=== PATIENT | male | born 1945 | race Caucasian/White ===

== ENCOUNTER 2019-07-21 10:04 | Emergency (ER) | payer MEDICARE, SELFPAY ==
[2019-07-21 10:07] VITALS: BP 158/89; PULSE 74; RESP 16; TEMP 36.6; O2SAT 98
--- NOTE | 2019-07-21 10:27 | ED.GENADUL_ITS ---
Discharge Plan Disposition Patient Disposition: HOME Condition: Improving Discharge Details Chief Complaint: RashLesion Clinical Impression: Tick bite ED Provider: Karel Barragan Home Meds and New Rx's Prescriptions: New doxycycline hyclate 100 mg capsule 100 mg PO BID 14 Days Qty: 28 RF: 0 No Action atorvastatin 10 mg Tablet 10 mg PO DAILY RF: 0 warfarin 5 mg Tablet 5 mg PO DAILY RF: 0 diltiazem HCl 30 mg Tablet 30 mg PO DAILY RF: 0 Discharge Instructions Instructions: Tick Bite (ED) Additional Instructions: Remove bandage in 36 to 48 hours. Begin doxycycline as prescribed. Follow-up with the regular doctor's office for recheck of your warfarin level, the INR, Tuesday morning. Return for any acute concerns. Medical Decision Making 74-year-old male, related with warfarin for history of paroxysmal atrial fibrillation. Noticed a tick bite embedded in his right posterior thoracic wall. Partially removed at home, but due to retained foreign body and mild surrounding erythema, he seeks opinion in the ED. She is has unremarkable vital signs, exam reveals envenomation site. Without anesthesia bubble needle, 18- gauge was used to remove the residual foreign body. I do feel he is at high risk for Lyme disease exposure and will place him on a course of doxycycline. He lives in the [facility] and will have an INR check performed on Tuesday. He understands that antibiotics can interact with the warfarin mechanism of action. Stable for discharge to home at this time.. HPI General Mode of arrival: ambulatory . Date/Time Provider Initiated Documentation: 07/21/19 10:10 . Limitations to Documentation: no limitations . Information obtained by: patient . History of Present Illness 74 year old M presents to the emergency department with the chief complaint of Tick bite right chest, described as mild, Quality is described as dull, and is localized to the right. Patient reports no radiation. Patient started experiencing this hour(s) and it has been constant. No relieving factors improve symptom(s), No exacerbating factors reported . Patient notes no other symptoms.. Related Data Home Medications Medication Instructions Recorded Confirmed atorvastatin 10 mg PO DAILY 07/21/19 07/21/19 diltiazem HCl 30 mg PO DAILY 07/21/19 07/21/19 doxycycline hyclate 100 mg PO BID 14 Days #28 cap 07/21/19 warfarin 5 mg PO DAILY 07/21/19 07/21/19 Previous Rx's Medication Instructions Recorded doxycycline hyclate 100 mg PO BID 14 Days #28 cap 07/21/19 Allergies Allergy/AdvReac Type Severity Reaction Status Date / Time No Known Allergies Allergy Unverified 07/21/19 10:10 General Stated Complaint: RashLesion JAX: 5 Review of Systems Narrative: Joi hagan, on warfarin. Recently well. 4 systems reviewed and otherwise negative [facility] Social History Smoking/Tobacco Use Status: Never Alcohol Intake: current Alcohol Intake frequency: a few times a week Substance use type: does not use Do you feel safe at home: Yes Do you feel safe in your relationship?: Yes Exam Narrative Exam Narrative: GEN: awake, alert, oriented 3. Pleasant, well groomed, interactive. HEAD: Normocephalic, atraumatic ENT: Mucous membranes moist, oropharynx unremarkable, External ear exam unremarkable EYES: PERRL, EOMI NECK: Full ROM, no RAMONA, no menigismus CHEST/RESP: Nontender, clear to auscultation bilateral, no wheeze/rhonchi/rales. Right posterior chest wall with envenomation site, question residual foreign body. Mild surrounding erythema. No fluctuance. CARDIOVASCULAR: RRR, no murmur, rub bentley. 2+ Rad pulse bilateral EXT: Full ROM, no edema, no rash Neuro: Grossly normal neurologic exam, conversant, interactive. Psych: Speech fluent, thoughts congruent, affect normal Course Vital Signs Vital signs: Vital Signs Temperature 36.6 C 07/21/19 10:07 Pulse 74 07/21/19 10:07 Respiratory Rate 16 07/21/19 10:07 Blood Pressure 158/89 H 07/21/19 10:07 Pulse Oximetry 98 07/21/19 10:07 Temperature 36.6 C 07/21/19 10:07 Temperature Source Temporal Artery Scan 07/21/19 10:07 Pulse 74 07/21/19 10:07 Respiratory Rate 16 07/21/19 10:07 Respiratory Effort Non-Labored 07/21/19 10:07 Blood Pressure 158/89 H 07/21/19 10:07 Pulse Oximetry 98 07/21/19 10:07 Oxygen Delivery Method Room Air 07/21/19 10:07 Oxygen Flow Rate 0 07/21/19 10:07 Pain Level 0 10/26/19 10:07
== END 2019-07-21 10:38 | disposition home or self-care (01) ==
PROVIDERS: Emergency Provider Emergency Medicine
DX: S20.461A Insect bite (nonvenomous) of right back wall of thorax, initial encounter (principal); W57.XXXA Bitten or stung by nonvenomous insect and other nonvenomous arthropods, initial encounter
CPT/HCPCS: 99283